=== PATIENT | female | born 1975 | race African-American/Black ===

== ENCOUNTER 2019-12-19 22:59 | Emergency (ER) | payer SELFPAY ==
--- NOTE | 2019-12-19 23:43 | RADIOLOGY REPORT (SQ) ---
CLINICAL INDICATION: shoulder pain. . TECHNIQUE: 3 view(s) were obtained of the right shoulder. COMPARISON: None. FINDINGS: No acute displaced fracture is identified of the shoulder. Alignment appears anatomic. Joint spaces are within normal limits for age. Surrounding soft tissues are unremarkable. IMPRESSION: No evidence of acute bony injury to the shoulder.
[2019-12-20] MEDS ORDERED: METHOCARBAMOL 750 MG TABLET PO ONE (00:24)
--- NOTE | 2019-12-20 00:32 | ER Document Report ---
ED General - General Chief Complaint: Shoulder Pain Stated Complaint: RIGHT SHOULDER PAIN Time Seen by Provider: 12/19/19 23:42 Notes: 44-year-old female presents emergency department complaining of right shoulder pain that is located under her right shoulder blade that started while she was cooking today. States that she was stir frying some vegetables and not doing any heavy lifting or rapid strain. Denies any numbness, tingling or weakness. Denies any injury. States that she had the same pain a few years ago and went away on its own after lasting a few hours. States that the pain is a little bit worse when she takes a deep breath. Denies fevers, chills, nausea, vomiting or diarrhea. Denies any cardiac history. - Related Data Allergies/Adverse Reactions: Penicillins Allergy (Verified 12/19/19 23:15) Past Medical History - General Information source: Patient - Social History Smoking Status: Never Smoker Frequency of alcohol use: None Drug Abuse: None Family History: Reviewed & Not Pertinent Patient has suicidal ideation: No Patient has homicidal ideation: No Review of Systems - Review of Systems Constitutional: No symptoms reported Cardiovascular: No symptoms reported. denies: Chest pain Respiratory: See HPI, Hurts to breathe. denies: Cough, Short of breath Musculoskeletal: See HPI -: Yes All other systems reviewed and negative Physical Exam - Notes Notes: GENERAL: Alert, interacts well. No acute distress. HEAD: Normocephalic, atraumatic EYES: Pupils equal, round and reactive to light, extraocular movements intact. ENT: Oral mucosa moist, tongue midline. NECK: Full range of motion, supple, trachea midline. LUNGS: Clear to auscultation bilaterally, no wheezes, rales or rhonchi, no respiratory distress. HEART: Regular rate and rhythm, no murmurs, gallops, rubs. ABDOMEN: Soft, nontender, nondistended, bowel sounds present in all 4 quadrants. EXTREMITIES: Moves all 4 extremities spontaneously, no edema, radial and dorsalis pedis pulses 2/4 bilaterally. No cyanosis. Full range of motion in the bilateral upper extremities, no restriction range of motion, no weakness, 5- 5 muscle strength in the bilateral upper extremities. She does have some tenderness to palpation just inferior to the right shoulder blade, there is some muscle spasm noted along and between her ribs on the right-hand side in the posterior axillary line around rib 7. NEUROLOGICAL: Alert and oriented x3, normal speech, biceps and patellar DTRs 2+ bilaterally. PSYCH: Normal mood, normal affect. SKIN: Warm, Dry, normal turgor, no rashes or lesions noted. Course - Re-evaluation Re-evalutation: 12/20/19 00:33 Shoulder X-Ray 12/19/19 00:00 IMPRESSION: No evidence of acute bony injury to the shoulder. Patient has reproducible muscle spasm, no symptoms of stroke. Low suspicion for heart attack as this pain is entirely reproducible and is only located where the muscles are spasming. Patient will be started on a muscle relaxer and discharged home. Discharge - Discharge Clinical Impression: Intercostal muscle spasm Condition: Stable Disposition: HOME, SELF-CARE Additional Instructions: Muscle Relaxers Muscle relaxing medications are usually prescribed for acute muscle spasm or injury to the neck and back. They are often combined with antiinflammatory pain medication for increased relief. You may stop the muscle relaxer when the pain and stiffness have improved. Start the medication again if spasms recur. Muscle relaxers may cause drowsiness, especially with the first dose. Do not operate machinery or drive while under the effects of the medication. Most muscle relaxers last up to 24 hours. Do not combine the medication with alcohol. Please use ibuprofen (Motrin or Advil) 600-800 mg every 8 hours as needed for pain or fever. You may also use acetaminophen (Tylenol) 1000 mg every 4-6 hours as needed for pain or fever. Please be aware that many medications contain acetaminophen, do not exceed a total of 1000 mg of acetaminophen every 6 hours. Come back for fevers, shortness of breath that is more than a few seconds, numbness, tingling, weakness, difficulty moving your arm or any new or concerning symptoms. Prescriptions: Methocarbamol [Robaxin 750 mg Tablet] 1 - 2 tab PO BID #20 tablet
[2019-12-20 01:14] VITALS: BP 109/69
== END 2019-12-20 00:35 | disposition home or self-care (01) ==
LOC: ER 22:59
DX: M62.838 Other muscle spasm (principal); M25.511 Pain in right shoulder; Z88.0 Allergy status to penicillin
CPT/HCPCS: 99283; 73030; J3490